=== PATIENT | male | born 1995 ===

== ENCOUNTER 2019-11-16 09:28 | Emergency (ER) | payer OTHER ==
--- NOTE | 2019-11-16 09:53 | UC ---
Respiratory Complaint HPI - HPI Summary HPI Summary: Patient presents to urgent care reporting 3 days of progressive body aches cough with mucus that he swallows. Patient states last 2 days he's had fevers to 101. Patient's been taking Tylenol 1 g every 6 hours with improvement. Patient is able to eat and drink but states he's got body aches and fatigue. No nausea or vomiting. No rash. Patient did travel history or city for [place]. Patient states he's been unusually tired. No decongestants or other [id number]-[id number] medications taken. Patient to get the flu vaccine in [facility] in May 2019. Patient's medications as entered in the EMR reviewed this visit - History of Current Complaint Chief Complaint: UCGeneralIllness Stated Complaint: FEVER COUGH Time Seen by Provider: 11/16/19 09:42 Hx Obtained From: Patient Pain Intensity: 6 - Allergies/Home Medications Allergies/Adverse Reactions: Allergies Allergy/AdvReac Type Severity Reaction Status Date / Time No Known Allergies Allergy Verified 11/16/19 09:43 PMH/Surg Hx/FS Hx/Imm Hx Previously Healthy: Yes - Surgical History Surgical History: Yes Surgery Procedure, Year, and Place: deviated septum - Social History Occupation: Student Lives: Dormitory/Roommates Alcohol Use: Rare Substance Use Type: None Smoking Status (MU): Never Smoked Tobacco Review of Systems All Other Systems Reviewed And Are Negative: Yes Constitutional: Positive: Fever Skin: Positive: Negative Eyes: Positive: Negative ENT: Positive: Sinus Congestion Respiratory: Positive: Cough Cardiovascular: Positive: Negative Gastrointestinal: Positive: Negative Physical Exam - Summary Physical Exam Summary: Vital Signs Reviewed: Yes A+Ox3, no distress, intermittent cough Eyes: Conjunctiva Clear, ABHINAV. 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 Skin: Positive: no rash, no ecchymosis Vital Signs: Initial Vital Signs Temp 99.4 F 11/16/19 09:40 Pulse 100 11/16/19 09:40 Resp 20 11/16/19 09:40 BP 141/96 11/16/19 09:40 Pulse Ox 100 11/16/19 09:40 Diagnostics - Radiology No standard instances Radiology Interpretation Completed By: Radiologist - Patient Name: TEA KAUR Medical Record#: [id number] Ordering Physician: Gayla Kee MD Acct.#: [id number] : 1995 Age: 24 Sex: M Location: [facility] Exam Date: 11/16/19 1001 ADM Status: REG ER Order Information: CHEST PA & LAT 2 VWS Accession Number: [id number] CPT: 24473 Indication: Cough, wheezing. 2 views of the chest demonstrate no mediastinal shift. Heart is of normal size and configuration. Lung tapia are clear. IMPRESSION: No active cardiopulmonary disease is noted. _ <Electronically signed by Dai Bryson MD in OV> 11/16/19 1033 Dictated By: Dai Bryson MD Dictated Date/Time: 11/16/19 1032 Transcribed Date/Time: 1032 Copy to: CC:Gayla Kee MD; No Primary Care Phys,[facility] Imaging - [facility] Imaging - [place] [facility] Imaging [facility] [address] [address] ph ([phone]) ph ([phone]) ph ([phone]) This report is only to be considered final once signed by the Provider(s) as displayed in the "<Electronically Signed by >" field (s). Absence of a signature indicates the report is in a draft status and still needs to be finalized. In the event this document was created by someone other than the signing Provider, the individual initiating the document will be listed in the "Entered by:" or "Dictated by:" tapia. 1 of 1 Re-Evaluation - Re-Evaluation First Eval Comment: reviewed flu result and cxr with pt. reviewed ibuprofen / APAP. hydrate. secretion precaution. supportive care. return precaution Respiratory Course/Dx - Course Course Of Treatment: Patient presents urgent care reported cough and wheeze progressive for the last 3 days. Patient has had a fever to 101. Responsive to Tylenol for last 2 days. Patient taken acetaminophen but no other okwy-qak-malsloa medications. Patient did travel to [facility] over the holiday. On exam vital signs show slightly elevated blood pressure. Likely related to today's chief complaint. Patient does have some sinus congestion, postnasal drip and intermittent cough. 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 We'll do chest x-ray and check for flu. Discussed with patient viral versus bacterial infections. We'll reassess following imaging studies. Patient comfortable and agreeable with plan. - Differential Dx/Diagnosis Provider Diagnosis: Influenza Discharge ED - Sign-Out/Discharge Documenting (check all that apply): Patient Departure All imaging exams completed and their final reports reviewed: Yes - Discharge Plan Condition: Stable Disposition: HOME Prescriptions: Oseltamivir Phosphate [Tamiflu] 75 mg PO BID #10 capsule Patient Education Materials: Influenza (ED) Referrals: [facility] [Provider Group] Additional Instructions: - Stay well hydrated. Drink plenty of non-alcoholic, non-caffinated beverages. - Alternate ibuprofen (Advil, Motrin) 600mg and acetaminophen (Tylenol) 1000mg every 3 hours for pain or fever. Take with food. Do NOT take for more than 4-5 days. - These infections are spread by secretions - do NOT share eating or drinking utensils - clean items you share with other people such as cell phones, computer mouse, TV remote, computer tablets,etc. Once you start to feel better, change your toothbrush and your pillowcase. - get plenty of restful sleep - humidify the air in the room where you sleep - boil water, run a hot steam shower, vaporizer, cups of water by heat register - okay to take over the counter decongestant and cough medication - Take antiviral medication as prescribed - contact [facility], your doctor, or go to the emergency department with questions or concerns - Billing Disposition and Condition Condition: STABLE Disposition: Home
[2019-11-16 10:11] LABS: Influenza A Molecular POSITIVE (Negative)
== END 2019-11-16 10:45 | disposition home or self-care (01) ==
LOC: UCEAST 09:28
DX: J11.1 Influenza due to unidentified influenza virus with other respiratory manifestations (principal)
CPT/HCPCS: 71046; 99202; G0463